=== PATIENT | male | born 1980 | race American Indian/Alaskan Native ===

== ENCOUNTER 2018-10-02 18:18 | Emergency (ER) | payer OTHER ==
[~2018-10-02] VITALS: Ht 193 cm; Wt 102.1 kg
[2018-10-02 18:25] VITALS: BP 154/104; TEMP 98.9
== END 2018-10-02 19:00 | disposition home or self-care (01) ==
LOC: ED 18:18
DX: E86.0 Dehydration (principal); X30.XXXA Exposure to excessive natural heat, initial encounter
CPT/HCPCS: 99281

== ENCOUNTER 2020-08-16 17:24 | Emergency (ER) | payer OTHER ==
[~2020-08-16] VITALS: Ht 193 cm; Wt 102.1 kg
[2020-08-16 17:24] VITALS: TEMP 98.2
[2020-08-17 02:39] VITALS: BP 154/94
== END 2020-08-17 03:40 | disposition short-term general hospital (02) ==
LOC: ED 17:34
PROC: 2W38X1Z Immobilization of Right Upper Extremity using Splint (ICD-10-PCS; principal; 2020-08-16)
DX: S42.491A Other displaced fracture of lower end of right humerus, initial encounter for closed fracture (principal); V89.2XXA Person injured in unspecified motor-vehicle accident, traffic, initial encounter; Y92.89 Other specified places as the place of occurrence of the external cause
CPT/HCPCS: 96372; 96374; 96375; 99285; J1200; J1630; J1885; J2060; J2175; J2550

== ENCOUNTER 2020-08-23 09:26 | Emergency (ER) | payer OTHER | END 2020-08-23 10:42 | disposition home or self-care (01) | LOC: ED 09:26 | DX: S42.301D Unspecified fracture of shaft of humerus, right arm, subsequent encounter for fracture with routine healing (principal); S40.821A Blister (nonthermal) of right upper arm, initial encounter; X58.XXXD Exposure to other specified factors, subsequent encounter; Y92.9 Unspecified place or not applicable | CPT/HCPCS: 99282 ==